=== PATIENT | male | born 1935 | race Caucasian/White ===

== ENCOUNTER 2023-01-11 12:37 | Inpatient (IN) | payer MEDICARE, BC ==
[2023-01-11 15:07] VITALS: BMI 41.8
[2023-01-11] MEDS ORDERED: Senokot S 8.6-50 MG TAB PO PRN (16:42)
[2023-01-11] MEDS ORDERED: HumaLOG 300 UNITS/3 ML VIAL SC PRN (16:54)
[2023-01-11] MEDS ORDERED: Dextrose 5% in Water 1,000 ML IV PRN (16:54)
[2023-01-11] MEDS ORDERED: Dextrose 50% Abboject 50 ML SYRINGE SLOW IVP PRN (16:54)
[2023-01-11 17:06] LABS: Hemoglobin 10.3 g/dL (14.0-18.0)
[2023-01-11] MEDS ORDERED: Multivit, Therapeutic 1 TAB PO SCH (17:15)
[2023-01-11] MEDS: Tamsulosin HCl 0.4 MG CAP PO SCH (17:17)
[2023-01-11 19:57] LABS: Prothrombin Time 13.8 sec (12.0-14.7)
[2023-01-11] MEDS: Famotidine 20 MG TAB PO SCH (20:41)
[2023-01-11] MEDS: Atorvastatin Calcium 10 MG TAB PO SCH (20:41)
[2023-01-11] MEDS: Melatonin 3 MG TAB PO SCH (20:41)
[2023-01-11] MEDS: Cefepime 2 GM in Sodium Chloride 0.9% 100 ML IVPB SCH (20:42)
[2023-01-12 01:16] LABS: Hemoglobin 9.9 g/dL (14.0-18.0)
[2023-01-12 07:42] LABS: #Basophils 0.1 thou/uL (0.0-0.2); #Eosinphils 0.1 thou/uL (0.0-0.7); #Monocytes 1.3 thou/uL (0.11-0.59); #Neutrophils 11.9 thou/uL (1.40-6.50); %Basophils 0.3 % (0.0-1.0); %Eosinophils 0.7 % (0.0-10.0); %Lymphocytes 10.9 % (21.0-51.0); %Monocytes 8.9 % (0.0-10.0); %Neutrophils 78.5 % (42.0-75.0); Hemoglobin 9.8 g/dL (14.0-18.0); Mean Corpuscular HGB CONC 31.1 g/dL (32.0-36.0); Mean Corpuscular Hemoglobin 28.2 pg (27.0-31.0); Mean Corpuscular Volume 90.8 fl (78.0-98.0); Platelet Count 304 10x3/uL (130-400); RBC Distribution Width 13.3 % (11.5-14.5); Red Blood Cell (RBC) Count 3.47 mill/uL (4.70-6.10); White Blood Cell (WBC) Count 15.1 10x3/uL (4.8-10.8)
[2023-01-12 08:09] LABS: ALT (SGPT) 11 U/L (8-55); AST (SGOT) 16 U/L (5-34); Albumin 3.7 g/dL (3.4-4.8); Alkaline Phosphatase 86 U/L (40-110); Anion Gap 11 mmol/L (10-20); BUN (Urea Nitrogen) 12 mg/dL (8.4-25.7); Bilirubin, Total 0.7 mg/dL (0.2-1.2); Calc. Creatinine Clearance 99 mL/min (70-130); Calcium 9.1 mg/dL (7.8-10.44); Carbon Dioxide 30 mmol/L (23-31); Chloride 99 mmol/L (98-107); Estimated GFR 75; Globulin 2.8 g/dL (2.4-3.5); Glucose 133 mg/dL (83-110); Potassium 4.2 mmol/L (3.5-5.1); Protein, Total 6.5 g/dL (5.8-8.1); Sodium 136 mmol/L (136-145)
[2023-01-12] MEDS ORDERED: Amlodipine 5 MG TAB PO SCH (09:00)
[2023-01-12 09:14] LABS: Hemoglobin 9.9 g/dL (14.0-18.0)
[2023-01-12] MEDS: Cefepime 2 GM in Sodium Chloride 0.9% 100 ML IVPB SCH ×2 (09:26→20:57)
[2023-01-12] MEDS: Allopurinol 100 MG TAB PO SCH ×2 (09:27→09:33)
[2023-01-12] MEDS: Furosemide 40 MG TAB PO SCH (09:28)
[2023-01-12] MEDS: Spironolactone 25 MG TAB PO SCH (09:29)
[2023-01-12] MEDS: Famotidine 20 MG TAB PO SCH ×2 (09:29→20:58)
[2023-01-12] MEDS: Losartan 25 MG TAB PO SCH (09:30)
[2023-01-12] MEDS: Fluticasone Propionate Nasal Spray 16 gm Bottle NASAL SCH (09:32)
[2023-01-12] MEDS ORDERED: Iopamidol 0 ML ONE (13:39)
[2023-01-12] MEDS ORDERED: fentaNYL 50 mcg/mL 1 mL Vial ONE ×2 (13:45→15:14)
[2023-01-12] MEDS ORDERED: NEOSTIGMINE 3 MG/3 ML SYR 3 MG/3 ML SYRINGE ONE (14:14)
[2023-01-12] MEDS ORDERED: PHENYLEPHRINE-NS 100 MCG/ML 10 ML SYRINGE ONE (14:14)
[2023-01-12] MEDS ORDERED: GLYCOPYRROLATE/PF 0.2 MG/ML VIAL ONE (14:14)
[2023-01-12] MEDS ORDERED: Lidocaine 1% PF 5 ML VIAL ONE (14:14)
[2023-01-12] MEDS ORDERED: PROPOFOL 200 MG/20 ML VIAL ONE (14:14)
[2023-01-12] MEDS ORDERED: Ondansetron PF 4 MG/2 ML Vial ONE (14:14)
[2023-01-12] MEDS ORDERED: Rocuronium Bromide 10 MG/ML (10ML VIAL) ONE (14:14)
[2023-01-12] MEDS ORDERED: Promethazine HCl 25 MG/ML VIAL IM PRN (15:15)
[2023-01-12] MEDS ORDERED: Ondansetron HCl/PF 4 MG/2 ML Vial IVP PRN (15:15)
[2023-01-12] MEDS ORDERED: Temazepam 15 MG CAP PO PRN (18:34)
[2023-01-12] MEDS: Atorvastatin Calcium 10 MG TAB PO SCH (20:58)
[2023-01-12] MEDS: Amlodipine 5 MG TAB PO SCH (20:58)
[2023-01-12] MEDS: Melatonin 3 MG TAB PO SCH (20:59)
[2023-01-13] MEDS: Acetaminophen 325 MG TAB PO PRN ×3 (05:59→21:19)
[2023-01-13] MEDS: Hyoscyamine SL 0.125 MG TAB SL PRN ×3 (06:13→21:25)
[2023-01-13 06:35] LABS: #Eosinphils 0.1 thou/uL (0.0-0.7); #Neutrophils 15.9 thou/uL (1.40-6.50); %Basophils 0.2 % (0.0-1.0); %Eosinophils 0.3 % (0.0-10.0); %Lymphocytes 8.3 % (21.0-51.0); %Monocytes 9.9 % (0.0-10.0); %Neutrophils 80.8 % (42.0-75.0); Hemoglobin 10.1 g/dL (14.0-18.0); Mean Corpuscular HGB CONC 32.6 g/dL (32.0-36.0); Mean Corpuscular Hemoglobin 28.9 pg (27.0-31.0); Mean Corpuscular Volume 88.8 fl (78.0-98.0); Platelet Count 302 10x3/uL (130-400); RBC Distribution Width 13.4 % (11.5-14.5); Red Blood Cell (RBC) Count 3.49 mill/uL (4.70-6.10); White Blood Cell (WBC) Count 19.7 10x3/uL (4.8-10.8)
[2023-01-13 07:28] LABS: Anion Gap 12 mmol/L (10-20); BUN (Urea Nitrogen) 13 mg/dL (8.4-25.7); Calc. Creatinine Clearance 99 mL/min (70-130); Calcium 9.1 mg/dL (7.8-10.44); Carbon Dioxide 30 mmol/L (23-31); Chloride 97 mmol/L (98-107); Estimated GFR 75; Glucose 125 mg/dL (83-110); Potassium 4.4 mmol/L (3.5-5.1); Sodium 135 mmol/L (136-145)
[2023-01-13] MEDS ORDERED: Allopurinol 100 MG TAB PO SCH (09:00)
[2023-01-13] MEDS: Famotidine 20 MG TAB PO SCH ×2 (09:26→20:16)
[2023-01-13] MEDS: Cefepime 2 GM in Sodium Chloride 0.9% 100 ML IVPB SCH ×2 (09:26→20:14)
[2023-01-13] MEDS: Furosemide 40 MG TAB PO SCH (09:26)
[2023-01-13] MEDS: Spironolactone 25 MG TAB PO SCH (09:26)
[2023-01-13] MEDS: Losartan 25 MG TAB PO SCH (09:26)
[2023-01-13 09:42] LABS: % Free PSA 29.7 % (.); Total PSA 7.9 ng/mL (0.0-4.0)
[2023-01-13] MEDS: Fluticasone Propionate Nasal Spray 16 gm Bottle NASAL SCH (09:59)
[2023-01-13] MEDS: Tamsulosin HCl 0.4 MG CAP PO SCH (16:10)
[2023-01-13] MEDS ORDERED: Multivit, Therapeutic 1 TAB PO SCH (17:00)
[2023-01-13] MEDS: Melatonin 3 MG TAB PO SCH (20:15)
[2023-01-13] MEDS: Atorvastatin Calcium 10 MG TAB PO SCH (20:15)
[2023-01-13] MEDS: Amlodipine 5 MG TAB PO SCH (20:16)
[2023-01-13] MEDS ORDERED: Temazepam 15 MG CAP PO SCH (21:00)
[2023-01-14 01:12] VITALS: TEMP 97.8
[2023-01-14] MEDS: Acetaminophen 325 MG TAB PO PRN ×2 (06:20→12:37)
[2023-01-14 06:38] LABS: #Basophils 0.1 thou/uL (0.0-0.2); #Eosinphils 0.2 thou/uL (0.0-0.7); #Monocytes 2.3 thou/uL (0.11-0.59); #Neutrophils 15.6 thou/uL (1.40-6.50); %Basophils 0.3 % (0.0-1.0); %Eosinophils 0.8 % (0.0-10.0); %Lymphocytes 14.5 % (21.0-51.0); %Monocytes 10.7 % (0.0-10.0); %Neutrophils 72.8 % (42.0-75.0); Hemoglobin 10.8 g/dL (14.0-18.0); Mean Corpuscular HGB CONC 31.2 g/dL (32.0-36.0); Mean Corpuscular Hemoglobin 27.8 pg (27.0-31.0); Mean Corpuscular Volume 89.2 fl (78.0-98.0); Mean Platelet Volume 9.1 fL (7.4-10.4); Platelet Count 334 10x3/uL (130-400); RBC Distribution Width 13.3 % (11.5-14.5); Red Blood Cell (RBC) Count 3.88 mill/uL (4.70-6.10); White Blood Cell (WBC) Count 21.4 10x3/uL (4.8-10.8)
[2023-01-14 07:04] LABS: Anion Gap 16 mmol/L (10-20); BUN (Urea Nitrogen) 17 mg/dL (8.4-25.7); Calc. Creatinine Clearance 89 mL/min (70-130); Calcium 9.6 mg/dL (7.8-10.44); Carbon Dioxide 27 mmol/L (23-31); Chloride 97 mmol/L (98-107); Estimated GFR 65; Glucose 117 mg/dL (83-110); Potassium 3.9 mmol/L (3.5-5.1); Sodium 136 mmol/L (136-145)
[2023-01-14 07:55] VITALS: BP 132/69
[2023-01-14] MEDS: Furosemide 40 MG TAB PO SCH (08:56)
[2023-01-14] MEDS: Famotidine 20 MG TAB PO SCH (08:56)
[2023-01-14] MEDS: Losartan 25 MG TAB PO SCH (08:56)
[2023-01-14] MEDS: Spironolactone 25 MG TAB PO SCH (08:57)
[2023-01-14] MEDS: Cefepime 2 GM in Sodium Chloride 0.9% 100 ML IVPB SCH (08:57)
[2023-01-14] MEDS: Fluticasone Propionate Nasal Spray 16 gm Bottle NASAL SCH (08:57)
[2023-01-14] MEDS: Hyoscyamine SL 0.125 MG TAB SL PRN (09:50)
== END 2023-01-14 16:32 | disposition home or self-care (01) | DRG 687 ==
LOC: T4-B 14:13
PROVIDERS: ADMIT Internal Medicine; ATTEND Family Medicine
PROC: 0TCB8ZZ Extirpation of Matter from Bladder, Via Natural or Artificial Opening Endoscopic (ICD-10-PCS; principal; 2023-01-12)
DX: C67.9 Malignant neoplasm of bladder, unspecified (principal); D62 Acute posthemorrhagic anemia; Z68.41 Body mass index [BMI] 40.0-44.9, adult; R31.0 Gross hematuria; N40.0 Benign prostatic hyperplasia without lower urinary tract symptoms; E11.9 Type 2 diabetes mellitus without complications; I10 Essential (primary) hypertension; J44.9 Chronic obstructive pulmonary disease, unspecified; E66.01 Morbid (severe) obesity due to excess calories; G47.33 Obstructive sleep apnea (adult) (pediatric); Z79.899 Other long term (current) drug therapy; Z88.1 Allergy status to other antibiotic agents; Z79.82 Long term (current) use of aspirin; Z99.81 Dependence on supplemental oxygen; D72.829 Elevated white blood cell count, unspecified; E66.9 Obesity, unspecified
CPT/HCPCS: 36415; 74176; 80048; 80053; 81003; 81015; 84153; 84154; 85025; 85610; 86850; 86900; 86901; 87040; 87086; J0692; J1956; J2405; J2704; J3010; J3490; Q9967

== ENCOUNTER 2023-03-16 00:31 | Inpatient (IN) | payer MEDICARE, BC ==
[2023-03-16] MEDS ORDERED: NOREPINEPHRINE 8 MG/250 ML-D5W 250 ML ONE (01:08)
[2023-03-16 01:09] LABS: Hemoglobin 7.2 g/dL (14.0-18.0); Mean Corpuscular HGB CONC 32.3 g/dL (32.0-36.0); Mean Corpuscular Hemoglobin 29.1 pg (27.0-31.0); Mean Corpuscular Volume 90.3 fl (78.0-98.0); Mean Platelet Volume 8.7 fL (7.4-10.4); Platelet Count 121 10x3/uL (130-400); RBC Distribution Width 13.8 % (11.5-14.5); Red Blood Cell (RBC) Count 2.47 mill/uL (4.70-6.10); White Blood Cell (WBC) Count 9.8 10x3/uL (4.8-10.8)
[2023-03-16 01:14] LABS: Delete Auto Diff?? YES; Manual Diff?? YES
[2023-03-16] MEDS ORDERED: Dexamethasone 10 MG/ML VIAL ONE (01:20)
[2023-03-16] MEDS ORDERED: Furosemide 40 MG/4 ML VIAL ONE (01:21)
[2023-03-16 01:23] LABS: INR-International Normal Ratio 1.2; Prothrombin Time 15.2 sec (12.0-14.7)
[2023-03-16 01:24] LABS: PTT 30.2 sec (22.9-36.1)
[2023-03-16 01:37] LABS: Band 7 % (5-11); Burr Cells SLIGHT = 2-5 cells HPF (0-1); CellaVision Operator ID lab.abc; Large Platelets 0.8 % (0-5); Metamyelocyte 1 % (0-0); Monocytes 3 % (0-10); Neutrophil 90 % (42-75); Platelet Adequacy Comment Platelets Decreased; Smudge Cells 9.2 %; Total Cell Count 119
[2023-03-16 01:41] LABS: ALT (SGPT) 14 U/L (8-55); AST (SGOT) 18 U/L (5-34); Albumin 2.5 g/dL (3.4-4.8); Alkaline Phosphatase 46 U/L (40-110); Anion Gap 13 mmol/L (10-20); BUN (Urea Nitrogen) 18 mg/dL (8.4-25.7); Bilirubin, Total 0.5 mg/dL (0.2-1.2); CK (CPK) 89 U/L (30-200); Calc. Creatinine Clearance 0 mL/min (70-130); Calcium 6.4 mg/dL (7.8-10.44); Carbon Dioxide 16 mmol/L (23-31); Chloride 108 mmol/L (98-107); Estimated GFR 80; Globulin 1.9 g/dL (2.4-3.5); Glucose 148 mg/dL (83-110); Lipase 7 U/L (8-78); Magnesium 0.8 mg/dL (1.6-2.6); Potassium 4.3 mmol/L (3.5-5.1); Protein, Total 4.4 g/dL (5.8-8.1); Sodium 133 mmol/L (136-145)
[2023-03-16 01:54] LABS: CKMB 2.9 ng/mL (0-6.6)
[2023-03-16 02:09] LABS: Actual Bicarbonate (HCO3a) 20.2 mEq/L (22-28); Base Excess (BEa) -5.3 mEq/L (-2.0 to +3.0); CO2 Tension 39.4 mmHg (35.0-45.0); Calcium, Ionized (arterial) 0.95 mmol/L (1.12-1.30); Carboxyhemoglobin (COHb) 0.3 gm% (0.0-3.0); Hematocrit-ABG 26 % (42.0-52.0); O2 Tension (PaO2), arterial 66.9 mmHg (> 60.0); Potassium - ABG Lab 4.23 mmol/L (3.70-5.30); pH, Arterial 7.328 (7.35-7.45)
[2023-03-16 02:10] LABS: Puncture Site LRA
[2023-03-16] MEDS ORDERED: Magnesium 2 GM/50 ML BAG (IN WATER) ONE (02:34)
[2023-03-16 02:59] LABS: Bilirubin Negative (Negative); Blood, Urine 2+ (Negative); CAUTI Indications for Culture Alt mental st,lethar; Clarity Clear (Clear); Glucose, Urine (Dipstick) Normal (Negative); Ketone, Urine Negative (Negative); Leukocyte 75 Leu/uL (Negative); Nitrite Negative (Negative); Protein, Urine (Dipstick) Negative (Neg-Trace); Specific Gravity, Urine 1.008 (1.002-1.036); Squamous Epithelial None Seen HPF (0-3); Urobilinogen Normal mg/dL (Less than 2); WBC/HPF 21-50 HPF (0-3)
[2023-03-16 03:01] LABS: Bacteria/HPF Rare-Few HPF (None Seen)
[2023-03-16] MEDS ORDERED: cefTRIAXone\\ROCEPHIN 1 GM in Sodium Chloride 0.9% 100 ML IVPB SCH (03:45)
[2023-03-16 05:19] LABS: Lactic Acid 2.6 mmol/L (0.5-2.2)
[2023-03-16 05:28] LABS: Troponin I 0.058 ng/mL (< 0.028)
[2023-03-16] MEDS ORDERED: Calcium Chloride 1 GM/10 ML Abboject SYRINGE IVP SCH (05:30)
[2023-03-16] MEDS: Pantoprazole 80 MG, Admixture Fee 1 EACH in Sodium Chloride 0.9% 100 ML IVPB SCH (05:37)
[2023-03-16] MEDS ORDERED: Electrolyte Replacement Protocol 1 EACH FS SCH (06:00)
[2023-03-16] MEDS ORDERED: Ipratropium/Albuterol 3 ML NEB NEB PRN (06:05)
[2023-03-16] MEDS ORDERED: diphenhydrAMINE 50 MG/ML VIAL IVP SCH (06:15)
[2023-03-16] MEDS ORDERED: Ondansetron PF 4 MG/2 ML Vial IVP PRN (06:17)
[2023-03-16] MEDS ORDERED: NOREPINEPHRINE 8 MG/250 ML-D5W 250 ML IVPB SCH (06:45)
[2023-03-16 06:54] LABS: Lactic Acid 2.9 mmol/L (0.5-2.2)
[2023-03-16 07:01] LABS: Troponin I 0.055 ng/mL (< 0.028)
[2023-03-16] MEDS: cefTRIAXone\\ROCEPHIN 1 GM in Sodium Chloride 0.9% 100 ML IVPB SCH (08:57)
[2023-03-16] MEDS ORDERED: Magnesium 2 GM/50 ML(in water) 2 GM in Premix Bag 1 BAG IVPB SCH (10:30)
[2023-03-16] MEDS: Hyoscyamine SL 0.125 MG TAB PO PRN ×3 (10:37→20:57)
[2023-03-16] MEDS ORDERED: Iopamidol-370 76% 500 ML MDV (1 ML CHARGE) ONE (11:43)
[2023-03-16 15:28] LABS: Hemoglobin 9.6 g/dL (14.0-18.0)
[2023-03-16] MEDS ORDERED: Hyoscyamine SL 0.125 MG TAB SL PRN (18:10)
[2023-03-16] MEDS ORDERED: Ondansetron ODT 8 MG TAB PO PRN (18:10)
[2023-03-16] MEDS ORDERED: Nystatin Cream 15 GM TUBE TOP PRN (18:10)
[2023-03-16] MEDS ORDERED: Allopurinol 100 MG TAB PO SCH (18:15)
[2023-03-16] MEDS ORDERED: Tamsulosin HCl 0.4 MG CAP PO SCH ×2 (18:15→21:00)
[2023-03-16] MEDS: Acetaminophen 325 MG TAB PO PRN (20:24)
[2023-03-16] MEDS: Allopurinol 100 MG TAB PO SCH (20:27)
[2023-03-16] MEDS: Atorvastatin Calcium 10 MG TAB PO SCH (20:57)
[2023-03-16] MEDS ORDERED: Atorvastatin Calcium 10 MG TAB PO SCH (21:00)
[2023-03-17] MEDS: Pantoprazole 80 MG, Admixture Fee 1 EACH in Sodium Chloride 0.9% 100 ML IVPB SCH (01:44)
[2023-03-17] MEDS ORDERED: Nystatin Cream 30 GM TUBE TOP PRN (03:34)
[2023-03-17] MEDS: Hyoscyamine SL 0.125 MG TAB PO PRN (03:49)
[2023-03-17 03:53] LABS: Hemoglobin 9.5 g/dL (14.0-18.0); Mean Corpuscular HGB CONC 34.1 g/dL (32.0-36.0); Mean Corpuscular Hemoglobin 29.1 pg (27.0-31.0); Mean Corpuscular Volume 85.3 fl (78.0-98.0); Mean Platelet Volume 9.4 fL (7.4-10.4); Red Blood Cell (RBC) Count 3.27 mill/uL (4.70-6.10); White Blood Cell (WBC) Count 8.4 10x3/uL (4.8-10.8)
[2023-03-17 04:18] LABS: ALT (SGPT) 22 U/L (8-55); AST (SGOT) 23 U/L (5-34); Albumin 2.8 g/dL (3.4-4.8); Alkaline Phosphatase 51 U/L (40-110); Anion Gap 13 mmol/L (10-20); BUN (Urea Nitrogen) 15 mg/dL (8.4-25.7); Bilirubin, Total 0.6 mg/dL (0.2-1.2); Calc. Creatinine Clearance 109 mL/min (70-130); Carbon Dioxide 25 mmol/L (23-31); Chloride 101 mmol/L (98-107); Estimated GFR 85; Globulin 2.1 g/dL (2.4-3.5); Glucose 142 mg/dL (83-110); Magnesium 1.7 mg/dL (1.6-2.6); Phosphorus 3.3 mg/dL (2.3-4.7); Potassium 4.8 mmol/L (3.5-5.1); Protein, Total 4.9 g/dL (5.8-8.1); Sodium 134 mmol/L (136-145)
[2023-03-17 04:55] LABS: Delete Auto Diff?? YES; Manual Diff?? YES; Platelet Count 117 10x3/uL (130-400)
[2023-03-17 06:09] LABS: Anisocytosis SLIGHT = 6-15 cells HPF (0-5); Band 22 % (5-11); Burr Cells SLIGHT = 2-5 cells HPF (0-1); CellaVision Operator ID LAB.JMM; Eosinophils 3 % (0-10); Lymphocytes 1 % (21-51); Macrocytosis SLIGHT = 6-15 cells HPF (0-5); Monocytes 6 % (0-10); Myelocyte 2 % (0-0); Neutrophil 65 % (42-75); Platelet Adequacy Comment Platelets Decreased; Polychromasia SLIGHT = 2-3 cells HPF (0-2); Reactive Lymphocytes 1 % (0-10); Total Cell Count 104
[2023-03-17] MEDS ORDERED: Magnesium 2 GM/50 ML(in water) 2 GM in Premix Bag 1 BAG IVPB SCH (08:00)
[2023-03-17] MEDS: cefTRIAXone\\ROCEPHIN 1 GM in Sodium Chloride 0.9% 100 ML IVPB SCH (08:58)
[2023-03-17] MEDS: Fluticasone Propionate Nasal Spray 16 gm Bottle NASAL SCH (08:59)
[2023-03-17] MEDS: Tamsulosin HCl 0.4 MG CAP PO SCH (08:59)
[2023-03-17] MEDS: Acetaminophen 325 MG TAB PO PRN (17:11)
[2023-03-17] MEDS: Atorvastatin Calcium 10 MG TAB PO SCH (19:46)
[2023-03-18 06:04] LABS: Hemoglobin 9.8 g/dL (14.0-18.0); Mean Corpuscular HGB CONC 33.8 g/dL (32.0-36.0); Mean Corpuscular Hemoglobin 29.1 pg (27.0-31.0); Mean Corpuscular Volume 86.1 fl (78.0-98.0); Mean Platelet Volume 9.8 fL (7.4-10.4); Platelet Count 92 10x3/uL (130-400); RBC Distribution Width 14.1 % (11.5-14.5); Red Blood Cell (RBC) Count 3.37 mill/uL (4.70-6.10)
[2023-03-18 06:20] LABS: Delete Auto Diff?? YES; Manual Diff?? YES
[2023-03-18 06:27] LABS: Anion Gap 13 mmol/L (10-20); BUN (Urea Nitrogen) 14 mg/dL (8.4-25.7); Calc. Creatinine Clearance 117 mL/min (70-130); Calcium 8.1 mg/dL (7.8-10.44); Carbon Dioxide 26 mmol/L (23-31); Chloride 96 mmol/L (98-107); Estimated GFR 87; Glucose 96 mg/dL (83-110); Potassium 4.5 mmol/L (3.5-5.1); Sodium 130 mmol/L (136-145)
[2023-03-18 07:10] LABS: Band 25 % (5-11); CellaVision Operator ID LAB.GE; Lymphocytes 3 % (21-51); Metamyelocyte 3 % (0-0); Monocytes 3 % (0-10); Myelocyte 2 % (0-0); Neutrophil 64 % (42-75); Platelet Adequacy Comment Platelets Decreased; Polychromasia SLIGHT = 2-3 cells HPF (0-2); Total Cell Count 100
[2023-03-18] MEDS: Tamsulosin HCl 0.4 MG CAP PO SCH (08:30)
[2023-03-18] MEDS: Pantoprazole 40 MG VIAL IVP SCH (08:31)
[2023-03-18] MEDS: cefTRIAXone\\ROCEPHIN 1 GM in Sodium Chloride 0.9% 100 ML IVPB SCH (08:31)
[2023-03-18] MEDS: Fluticasone Propionate Nasal Spray 16 gm Bottle NASAL SCH (08:54)
[2023-03-18] MEDS: Benzocaine/Menthol 1 LOZ LOZ PO PRN ×2 (08:55→16:39)
[2023-03-18] MEDS: Diphenoxylate HCl/Atropine Tablet PO PRN ×2 (16:34→21:37)
[2023-03-18] MEDS: Atorvastatin Calcium 10 MG TAB PO SCH (19:40)
[2023-03-18] MEDS: Allopurinol 100 MG TAB PO SCH (19:40)
[2023-03-18] MEDS: Acetaminophen 325 MG TAB PO PRN (21:37)
[2023-03-19] MEDS: Benzocaine/Menthol 1 LOZ LOZ PO PRN ×3 (03:33→23:35)
[2023-03-19 06:41] LABS: #Eosinphils 0.1 thou/uL (0.0-0.7); #Monocytes 0.2 thou/uL (0.11-0.59); #Neutrophils 3.8 thou/uL (1.40-6.50); %Basophils 0.5 % (0.0-1.0); %Eosinophils 1.4 % (0.0-10.0); %Lymphocytes 25.5 % (21.0-51.0); %Monocytes 3.9 % (0.0-10.0); %Neutrophils 67.5 % (42.0-75.0); Hemoglobin 10.1 g/dL (14.0-18.0); Mean Corpuscular HGB CONC 33.9 g/dL (32.0-36.0); Mean Corpuscular Hemoglobin 28.7 pg (27.0-31.0); Mean Corpuscular Volume 84.7 fl (78.0-98.0); Mean Platelet Volume 10.2 fL (7.4-10.4); RBC Distribution Width 13.9 % (11.5-14.5); Red Blood Cell (RBC) Count 3.52 mill/uL (4.70-6.10); White Blood Cell (WBC) Count 5.6 10x3/uL (4.8-10.8)
[2023-03-19 06:50] LABS: Platelet Count 78 10x3/uL (130-400)
[2023-03-19 07:04] LABS: Anion Gap 13 mmol/L (10-20); BUN (Urea Nitrogen) 12 mg/dL (8.4-25.7); Calc. Creatinine Clearance 113 mL/min (70-130); Calcium 8.3 mg/dL (7.8-10.44); Carbon Dioxide 28 mmol/L (23-31); Chloride 94 mmol/L (98-107); Estimated GFR 87; Glucose 104 mg/dL (83-110); Potassium 4.3 mmol/L (3.5-5.1); Sodium 131 mmol/L (136-145)
[2023-03-19] MEDS: Tamsulosin HCl 0.4 MG CAP PO SCH (07:57)
[2023-03-19] MEDS: Fluticasone Propionate Nasal Spray 16 gm Bottle NASAL SCH (07:57)
[2023-03-19] MEDS: Pantoprazole 40 MG VIAL IVP SCH (07:57)
[2023-03-19] MEDS: cefTRIAXone\\ROCEPHIN 1 GM in Sodium Chloride 0.9% 100 ML IVPB SCH (07:57)
[2023-03-19] MEDS: Diphenoxylate HCl/Atropine Tablet PO PRN (12:36)
[2023-03-19] MEDS ORDERED: Sodium Chloride 0.9% 1,000 ML IV SCH (13:15)
[2023-03-19] MEDS: Atorvastatin Calcium 10 MG TAB PO SCH (20:17)
[2023-03-19] MEDS: Acetaminophen 325 MG TAB PO PRN (21:10)
[2023-03-20] MEDS: Fluticasone Propionate Nasal Spray 16 gm Bottle NASAL SCH (08:19)
[2023-03-20] MEDS: Tamsulosin HCl 0.4 MG CAP PO SCH (08:20)
[2023-03-20] MEDS: cefTRIAXone\\ROCEPHIN 1 GM in Sodium Chloride 0.9% 100 ML IVPB SCH (08:20)
[2023-03-20] MEDS: Pantoprazole 40 MG VIAL IVP SCH (08:20)
[2023-03-20] MEDS: Atorvastatin Calcium 10 MG TAB PO SCH (20:40)
[2023-03-20] MEDS: Allopurinol 100 MG TAB PO SCH (20:41)
[2023-03-20] MEDS: Acetaminophen 325 MG TAB PO PRN (20:43)
[2023-03-21] MEDS: Tamsulosin HCl 0.4 MG CAP PO SCH (08:33)
[2023-03-21] MEDS: Pantoprazole 40 MG VIAL IVP SCH (08:34)
[2023-03-21] MEDS: Fluticasone Propionate Nasal Spray 16 gm Bottle NASAL SCH (08:34)
[2023-03-21] MEDS: cefTRIAXone\\ROCEPHIN 1 GM in Sodium Chloride 0.9% 100 ML IVPB SCH (08:34)
[2023-03-21] MEDS: Atorvastatin Calcium 10 MG TAB PO SCH (20:38)
[2023-03-21] MEDS: Acetaminophen 325 MG TAB PO PRN (20:39)
[2023-03-22 06:47] LABS: #Monocytes 0.5 thou/uL (0.11-0.59); #Neutrophils 2.6 thou/uL (1.40-6.50); %Basophils 0.5 % (0.0-1.0); %Eosinophils 0.9 % (0.0-10.0); %Lymphocytes 27.6 % (21.0-51.0); %Monocytes 10.9 % (0.0-10.0); %Neutrophils 59.4 % (42.0-75.0); Hemoglobin 9.7 g/dL (14.0-18.0); Mean Corpuscular HGB CONC 33.9 g/dL (32.0-36.0); Mean Corpuscular Hemoglobin 28.9 pg (27.0-31.0); Mean Corpuscular Volume 85.1 fl (78.0-98.0); Mean Platelet Volume 10.3 fL (7.4-10.4); RBC Distribution Width 13.8 % (11.5-14.5); Red Blood Cell (RBC) Count 3.36 mill/uL (4.70-6.10); White Blood Cell (WBC) Count 4.4 10x3/uL (4.8-10.8)
[2023-03-22 06:54] LABS: Platelet Count 79 10x3/uL (130-400)
[2023-03-22 07:03] LABS: Anion Gap 11 mmol/L (10-20); BUN (Urea Nitrogen) 11 mg/dL (8.4-25.7); Calc. Creatinine Clearance 125 mL/min (70-130); Calcium 8.2 mg/dL (7.8-10.44); Carbon Dioxide 30 mmol/L (23-31); Chloride 94 mmol/L (98-107); Estimated GFR 90; Glucose 111 mg/dL (83-110); Potassium 3.9 mmol/L (3.5-5.1); Sodium 131 mmol/L (136-145)
[2023-03-22] MEDS: Pantoprazole 40 MG VIAL IVP SCH (09:30)
[2023-03-22] MEDS: cefTRIAXone\\ROCEPHIN 1 GM in Sodium Chloride 0.9% 100 ML IVPB SCH (09:30)
[2023-03-22] MEDS: Tamsulosin HCl 0.4 MG CAP PO SCH (09:30)
[2023-03-22] MEDS: Fluticasone Propionate Nasal Spray 16 gm Bottle NASAL SCH (09:30)
[2023-03-22 13:21] VITALS: BMI 37.3
[2023-03-22] MEDS: Diphenoxylate HCl/Atropine Tablet PO PRN (18:26)
[2023-03-22] MEDS: Allopurinol 100 MG TAB PO SCH (20:29)
[2023-03-22] MEDS: Atorvastatin Calcium 10 MG TAB PO SCH (20:29)
[2023-03-22] MEDS: Acetaminophen 325 MG TAB PO PRN (22:12)
[2023-03-23 07:58] LABS: #Monocytes 0.7 thou/uL (0.11-0.59); #Neutrophils 3.4 thou/uL (1.40-6.50); %Basophils 0.6 % (0.0-1.0); %Eosinophils 0.4 % (0.0-10.0); %Lymphocytes 20.3 % (21.0-51.0); %Monocytes 12.4 % (0.0-10.0); %Neutrophils 65.3 % (42.0-75.0); Hemoglobin 9.4 g/dL (14.0-18.0); Mean Corpuscular HGB CONC 33.5 g/dL (32.0-36.0); Mean Corpuscular Hemoglobin 28.7 pg (27.0-31.0); Mean Corpuscular Volume 85.7 fl (78.0-98.0); Mean Platelet Volume 10.1 fL (7.4-10.4); Platelet Count 90 10x3/uL (130-400); RBC Distribution Width 13.5 % (11.5-14.5); Red Blood Cell (RBC) Count 3.28 mill/uL (4.70-6.10); White Blood Cell (WBC) Count 5.3 10x3/uL (4.8-10.8)
[2023-03-23] MEDS: Tamsulosin HCl 0.4 MG CAP PO SCH (07:59)
[2023-03-23] MEDS: Fluticasone Propionate Nasal Spray 16 gm Bottle NASAL SCH (08:00)
[2023-03-23] MEDS: Pantoprazole 40 MG VIAL IVP SCH (08:00)
[2023-03-23 08:25] LABS: Anion Gap 11 mmol/L (10-20); BUN (Urea Nitrogen) 11 mg/dL (8.4-25.7); Calc. Creatinine Clearance 121 mL/min (70-130); Calcium 8.1 mg/dL (7.8-10.44); Carbon Dioxide 30 mmol/L (23-31); Chloride 93 mmol/L (98-107); Estimated GFR 90; Glucose 111 mg/dL (83-110); Potassium 3.7 mmol/L (3.5-5.1); Sodium 130 mmol/L (136-145)
[2023-03-23] MEDS: Diphenoxylate HCl/Atropine Tablet PO PRN (10:12)
[2023-03-23] MEDS: Atorvastatin Calcium 10 MG TAB PO SCH ×2 (20:29→20:35)
[2023-03-24 07:43] LABS: #Monocytes 0.7 thou/uL (0.11-0.59); #Neutrophils 2.7 thou/uL (1.40-6.50); %Basophils 0.5 % (0.0-1.0); %Eosinophils 0.2 % (0.0-10.0); %Lymphocytes 17.6 % (21.0-51.0); %Monocytes 16.9 % (0.0-10.0); %Neutrophils 63.6 % (42.0-75.0); Hemoglobin 8.7 g/dL (14.0-18.0); Mean Corpuscular HGB CONC 33.2 g/dL (32.0-36.0); Mean Corpuscular Hemoglobin 28.2 pg (27.0-31.0); Mean Corpuscular Volume 85.1 fl (78.0-98.0); Mean Platelet Volume 9.8 fL (7.4-10.4); Platelet Count 100 10x3/uL (130-400); RBC Distribution Width 13.6 % (11.5-14.5); Red Blood Cell (RBC) Count 3.08 mill/uL (4.70-6.10); White Blood Cell (WBC) Count 4.3 10x3/uL (4.8-10.8)
[2023-03-24] MEDS: Tamsulosin HCl 0.4 MG CAP PO SCH (07:59)
[2023-03-24] MEDS: Pantoprazole 40 MG VIAL IVP SCH (07:59)
[2023-03-24] MEDS: Fluticasone Propionate Nasal Spray 16 gm Bottle NASAL SCH (07:59)
[2023-03-24] MEDS: Diphenoxylate HCl/Atropine Tablet PO PRN ×3 (08:02→20:22)
[2023-03-24 08:04] LABS: Anion Gap 11 mmol/L (10-20); BUN (Urea Nitrogen) 11 mg/dL (8.4-25.7); Calc. Creatinine Clearance 127 mL/min (70-130); Calcium 8.1 mg/dL (7.8-10.44); Carbon Dioxide 28 mmol/L (23-31); Chloride 95 mmol/L (98-107); Estimated GFR 91; Glucose 120 mg/dL (83-110); Potassium 3.7 mmol/L (3.5-5.1); Sodium 130 mmol/L (136-145)
[2023-03-24] MEDS: Acetaminophen 325 MG TAB PO PRN ×3 (08:05→20:23)
[2023-03-24] MEDS: Allopurinol 100 MG TAB PO SCH (20:22)
[2023-03-24] MEDS: Atorvastatin Calcium 10 MG TAB PO SCH (20:22)
[2023-03-25 06:31] LABS: Hemoglobin 8.6 g/dL (14.0-18.0); Manual Diff?? YES; Mean Corpuscular HGB CONC 33.5 g/dL (32.0-36.0); Mean Corpuscular Hemoglobin 28.7 pg (27.0-31.0); Mean Corpuscular Volume 85.7 fl (78.0-98.0); Mean Platelet Volume 9.8 fL (7.4-10.4); Platelet Count 114 10x3/uL (130-400); RBC Distribution Width 13.9 % (11.5-14.5); White Blood Cell (WBC) Count 4.1 10x3/uL (4.8-10.8)
[2023-03-25 06:51] LABS: Delete Auto Diff?? YES
[2023-03-25 07:21] LABS: Anion Gap 12 mmol/L (10-20); BUN (Urea Nitrogen) 11 mg/dL (8.4-25.7); Carbon Dioxide 30 mmol/L (23-31); Chloride 93 mmol/L (98-107); Potassium 3.8 mmol/L (3.5-5.1); Sodium 131 mmol/L (136-145)
[2023-03-25 07:22] LABS: Calc. Creatinine Clearance 117 mL/min (70-130); Calcium 8.2 mg/dL (7.8-10.44); Estimated GFR 88; Glucose 123 mg/dL (83-110)
[2023-03-25 07:31] VITALS: TEMP 97.7
[2023-03-25 07:34] LABS: Band 20 % (5-11); Eosinophils 1 % (0-10); Lymphocytes 14 % (21-51); Monocytes 15 % (0-10); Neutrophil 49 % (42-75); Platelet Adequacy Comment Platelets Decreased; Polychromasia SLIGHT = 2-3 cells HPF (0-2); Reactive Lymphocytes 2 % (0-10); Smudge Cells 13.6 %; Total Cell Count 103
[2023-03-25 07:35] LABS: CellaVision Operator ID LAB.GE
[2023-03-25] MEDS: Tamsulosin HCl 0.4 MG CAP PO SCH (08:44)
[2023-03-25] MEDS: Pantoprazole 40 MG VIAL IVP SCH (08:45)
[2023-03-25] MEDS: Fluticasone Propionate Nasal Spray 16 gm Bottle NASAL SCH (08:45)
[2023-03-25] MEDS: Diphenoxylate HCl/Atropine Tablet PO PRN ×2 (08:47→14:36)
[2023-03-25 16:01] VITALS: BP 105/45
== END 2023-03-25 16:01 | DRG 871 ==
LOC: ERS 00:31 → CCU 03:30 → T4-A 03-17 12:46
PROVIDERS: ADMIT Hospitalist; ATTEND Internal Medicine
PROC: 5A0935A Assistance with Respiratory Ventilation, Less than 24 Consecutive Hours, High Flow/Velocity Cannula (ICD-10-PCS; principal; 2023-03-16)
PROC: 4A033R1 Measurement of Arterial Saturation, Peripheral, Percutaneous Approach (ICD-10-PCS; 2023-03-16)
PROC: 30233N1 Transfusion of Nonautologous Red Blood Cells into Peripheral Vein, Percutaneous Approach (ICD-10-PCS; 2023-03-16)
PROC: 3E03329 Introduction of Other Anti-infective into Peripheral Vein, Percutaneous Approach (ICD-10-PCS; 2023-03-16)
PROC: 02HV33Z Insertion of Infusion Device into Superior Vena Cava, Percutaneous Approach (ICD-10-PCS; 2023-03-16)
PROC: 5A09357 Assistance with Respiratory Ventilation, Less than 24 Consecutive Hours, Continuous Positive Airway Pressure (ICD-10-PCS; 2023-03-17)
DX: A41.9 Sepsis, unspecified organism (principal); J96.01 Acute respiratory failure with hypoxia; R65.21 Severe sepsis with septic shock; E87.20 Acidosis, unspecified; D62 Acute posthemorrhagic anemia; K92.2 Gastrointestinal hemorrhage, unspecified; N39.0 Urinary tract infection, site not specified; E87.1 Hypo-osmolality and hyponatremia; M10.9 Gout, unspecified; I10 Essential (primary) hypertension; J44.9 Chronic obstructive pulmonary disease, unspecified; E78.5 Hyperlipidemia, unspecified; E66.9 Obesity, unspecified; E83.42 Hypomagnesemia; I95.9 Hypotension, unspecified; D64.81 Anemia due to antineoplastic chemotherapy; E87.70 Fluid overload, unspecified; N40.0 Benign prostatic hyperplasia without lower urinary tract symptoms; N32.89 Other specified disorders of bladder; J02.9 Acute pharyngitis, unspecified; C80.1 Malignant (primary) neoplasm, unspecified; Z85.51 Personal history of malignant neoplasm of bladder; Z98.890 Other specified postprocedural states; Z88.1 Allergy status to other antibiotic agents; Z79.899 Other long term (current) drug therapy
CPT/HCPCS: 36415; 36430; 36600; 51702; 71045; 74177; 77336; 77386; 80048; 80053; 81001; 82550; 82553; 82805; 83605; 83690; 83735; 83880; 84100; 84145; 84443; 84484; 85025; 85610; 85730; 86850; 86900; 86901; 87040; 87086; 93005; 96365; 96366; 96374; 96375; 99292; C9113; J0696; J1100; J1200; J1940; J3475; J3490; J7050; P9016; Q9967